=== PATIENT | female | born 1950 | race Caucasian/White ===

== ENCOUNTER → 2017-05-29 | Outpatient (REF) | payer MEDICARE ==
[2017-05-29 14:13] LABS: BASO % 0.7 % (0.0-1.0); EOS % 0.4 % (0.0-3.0); IMMATURE GRANULOCYTE % 0.2 % (0-0); LYMPH # 1.7 10^3/uL (1.5-4.5); LYMPH % 29.3 % (24.0-44.0); MEAN CORPUSCULAR HGB CONC 34.3 g/dl (32.0-36.5); MEAN CORPUSCULAR VOLUME 90.2 fl (80.0-96.0); MONO # 0.3 10^3/uL (0.0-0.8); MONO % 4.7 % (0.0-5.0); NEUTROPHILS # 3.7 10^3/uL (1.8-7.7); NEUTROPHILS % 64.7 % (36.0-66.0); PLATELET COUNT, AUTOMATED 222 10^3/uL (150-450); RED CELL DISTRIBUTION WIDTH 11.8 % (11.5-14.5); WHITE BLOOD COUNT 5.7 10^3/uL (4.0-10.0)
[2017-05-29 14:30] LABS: INR 0.98
[2017-05-29 15:12] LABS: ALBUMIN 4.2 GM/DL (3.2-5.2); ALBUMIN/GLOBULIN RATIO 1.27 (1.00-1.93); ALKALINE PHOSPHATASE 79 U/L (45-117); ALT/SGPT 33 U/L (12-78); AST/SGOT 22 U/L (15-37); BILIRUBIN,DIRECT 0.1 MG/DL (0.0-0.2); BILIRUBIN,TOTAL 0.5 MG/DL (0.2-1.0); CREATININE FOR GFR 0.61 MG/DL (0.55-1.02); GLOMERULAR FILTRATION RATE > 60.0 (>45); TOTAL PROTEIN 7.5 GM/DL (6.4-8.2)
[2017-05-31 14:20] LABS: VITAMIN D 1,25 DIHYDROXY 69.6 pg/mL (19.9-79.3)
[2017-06-02 15:11] LABS: BLASTOMYCES ANTIBODY LEVEL Negative (Neg:<1:1); CRYPTOCOCCUS ANTIGEN SER Negative (Negative); HISTOPLASMOSIS ANTIBODY Negative (Neg:<1:1)
[2017-06-06 07:16] LABS: COCCIDIOMYCOSIS ANTIBODY SEE SEPARATE REPORT (NEGATIVE)
== END ==
LOC: M LAB REF 13:16
PROVIDERS: ATTEND Internal Medicine Pulmonary Disease
DX: R91.8 Other nonspecific abnormal finding of lung field (principal); Z79.899 Other long term (current) drug therapy

== ENCOUNTER → 2017-06-05 | Outpatient (CLI) | payer MEDICARE ==
[~2017-06-05] MED LIST: LIDOCAINE 1% MDV 20ML VIAL As Ordered ONE
--- NOTE | 2017-06-05 13:20 | REP ---
CT GUIDED RIGHT LUNG NODULE BIOPSY: The procedure was performed by KRISTY Crouch, under the direct supervision of Dr. Sheldon. The procedure along with its risks, benefits and complications were discussed with the patient prior to the examination. Informed consent was obtained both verbally and written. The patient was identified in the CT suite and placed on her left hand side. CT guidance was used to find an appropriate site for needle entry. This area was marked, prepped and draped in the usual sterile fashion. A procedural time out was performed to ensure that the correct patient, site and procedure were being performed. Local infiltrative anesthesia was achieved using 1% Xylocaine. A 20-gauge Temno biopsy device was advanced into the lung to the area of interest using CT guidance. Three core biopsy specimens were obtained. These were placed in formalin and sent to the lab for further evaluation. Results pending. The needle was then removed, hemostasis was achieved and a soft dressing was applied to the entry site. Post procedural imaging revealed no immediate complications. The patient tolerated the procedure well. The patient had a minimal amount of hemoptysis during the procedure. IMPRESSION: Uncomplicated CT guided right lung nodule biopsy. Reviewed by KRISTY Stubbs 06/05/2017 01:24 PEdited and Signed by Immanuel Sheldon MD 06/06/2017 07:45 P
--- NOTE | 2017-06-05 13:30 | REP ---
POSTBIOPSY CHEST: Postbiopsy radiograph of the chest demonstrates no pneumothorax status post right lung biopsy. Right lung mass is again noted. Signed by Immanuel Sheldon MD 06/06/2017 04:28 P
== END ==
LOC: M RADPRO 09:06
PROVIDERS: ATTEND Internal Medicine Pulmonary Disease
DX: R91.8 Other nonspecific abnormal finding of lung field (principal); Z95.1 Presence of aortocoronary bypass graft; Z95.2 Presence of prosthetic heart valve; Z87.891 Personal history of nicotine dependence; Z85.828 Personal history of other malignant neoplasm of skin; Z79.82 Long term (current) use of aspirin; Z79.899 Other long term (current) drug therapy

== ENCOUNTER → 2017-09-17 | Outpatient (REF) | payer MEDICARE ==
[2017-09-17 13:56] LABS: PLATELET COUNT, AUTOMATED 261 10^3/uL (150-450)
[2017-09-17 14:14] LABS: INR 0.92; PROTHROMBIN TIME 12.4 SECONDS (12.4-14.5)
[2017-09-17 14:15] LABS: PARTIAL THROMBOPLASTIN TIME 28.2 SECONDS (26.8-37.9)
== END ==
LOC: M LAB REF 12:55
DX: R91.8 Other nonspecific abnormal finding of lung field (principal); Z79.01 Long term (current) use of anticoagulants
CPT/HCPCS: 85049

== ENCOUNTER 2017-09-26 10:50 | Day surgery (SDC) | payer MEDICARE ==
[2017-09-26] MEDS: LR 1,000 ML IV ×2 (11:58)
[2017-09-26] MEDS ORDERED: MIDAZOLAM INJ 2 MG/2 ML VIAL (J2250) As Ordered ×2 (12:21)
[2017-09-26] MEDS ORDERED: ROCURONIUM BROMIDE 50 MG/5 ML VIAL As Ordered ×2 (12:21)
[2017-09-26] MEDS ORDERED: fentaNYL 100 MCG/2 ML INJECTION (J3010) As Ordered ×2 (12:21)
[2017-09-26] MEDS ORDERED: ONDANSETRON 4MG/2ML VIAL (J2405) As Ordered ×2 (12:21)
[2017-09-26] MEDS ORDERED: SUCCINYLCHOLINE 100 MG/5 ML SYRINGE (J0330) As Ordered ×2 (12:21)
[2017-09-26] MEDS ORDERED: LIDOCAINE 2% INJ 100 MG/5 ML SDV (FOR ANES.) As Ordered ×2 (12:21)
[2017-09-26] MEDS ORDERED: METOCLOPRAMIDE INJ 10MG/2ML VIAL (J2765) As Ordered ×2 (12:21)
[2017-09-26] MEDS ORDERED: PROPOFOL 200 MG/20 ML VIAL As Ordered ×2 (12:21)
[2017-09-26] MEDS: CETACAINE SPRAY 5GM As Ordered ×2 (13:35)
[2017-09-26] MEDS: THROMBIN SOLN 5,000 UNITS VIAL As Ordered ×4 (14:14→14:37)
[2017-09-26] MEDS: EPINEPHrine 1MG/10ML SYRINGE 1.5IN As Ordered ×2 (14:14)
[2017-09-26] MEDS: LIDOCAINE 1% SDV INJ 30 ML VIAL As Ordered ×2 (14:37)
[2017-09-26] MEDS: LIDOCAINE VISCOUS 2% SOLN 15ML UDC As Ordered ×4 (14:37→15:13)
[2017-09-26] MEDS ORDERED: PHENYLephrine HCL 500 MCG/5 ML (100MCG/ML) SYRINGE (J2370) As Ordered ×2 (15:25)
[2017-09-26] MEDS ORDERED: LR 1,000 ML IV ×2 (15:30)
[2017-09-26] MEDS ORDERED: ONDANSETRON 4MG/2ML VIAL (J2405) IV ×2 (15:30)
[2017-09-26] MEDS ORDERED: PERCOCET 5MG/325MG TAB PO ×2 (15:30)
[2017-09-26] MEDS ORDERED: MEPERIDINE INJ 25 MG/ML VIAL (J2175) IV ×2 (15:30)
[2017-09-26] MEDS ORDERED: fentaNYL 100 MCG/2 ML INJECTION (J3010) IV ×2 (15:30)
[2017-09-26] MEDS ORDERED: METOCLOPRAMIDE INJ 10MG/2ML VIAL (J2765) IV ×2 (15:30)
[2017-09-26 16:38] LABS: APPEARANCE TURBID (CLEAR); COLOR RED (COLORLESS); DILUTION FACTOR 1; SOURCE RIGHT UPPER LOBE
[2017-09-26 16:39] LABS: BAL DIFF IF INDICATED? YES (NO); WBC BAL COUNTED 68
[2017-09-26 16:40] LABS: BAL WBC 75 CELLS/uL (0-10)
[2017-09-26 19:05] LABS: MONOCYTES/MACROPHAGES, BAL 1 %
[2017-09-26 19:06] LABS: CC BAL DIFF EXAM CYTOCENTRIFUGE
== END 2017-09-26 16:20 | disposition home or self-care (01) ==
LOC: M SDC 10:50
DX: R91.8 Other nonspecific abnormal finding of lung field (principal); J42 Unspecified chronic bronchitis; I25.10 Atherosclerotic heart disease of native coronary artery without angina pectoris; Z79.82 Long term (current) use of aspirin; Z79.899 Other long term (current) drug therapy; I10 Essential (primary) hypertension; E78.5 Hyperlipidemia, unspecified; K21.9 Gastro-esophageal reflux disease without esophagitis; Z86.73 Personal history of transient ischemic attack (TIA), and cerebral infarction without residual deficits; J45.909 Unspecified asthma, uncomplicated; Z87.891 Personal history of nicotine dependence; Z98.61 Coronary angioplasty status
CPT/HCPCS: 31623

== ENCOUNTER → 2017-10-09 | Outpatient (CLI) | payer MEDICARE | LOC: M PLARAD 10:07 | DX: C34.11 Malignant neoplasm of upper lobe, right bronchus or lung (principal) | CPT/HCPCS: 78815 ==

== ENCOUNTER → 2017-10-16 | Outpatient (CLI) | payer MEDICARE ==
[~2017-10-16] MED LIST changes: +GASTROGRAFIN SOLUTION 30ML (Q9963) As Ordered; +ISOVUE-370 76% 100ML VIAL (Q9967) As Ordered; -LIDOCAINE 1% MDV 20ML VIAL As Ordered ONE
== END ==
LOC: M RAD 13:03
DX: C34.90 Malignant neoplasm of unspecified part of unspecified bronchus or lung (principal); R91.8 Other nonspecific abnormal finding of lung field
CPT/HCPCS: Q9963

== ENCOUNTER → 2017-10-19 | Outpatient (CLI) | payer MEDICARE | LOC: M PLARAD 09:20 | DX: C34.90 Malignant neoplasm of unspecified part of unspecified bronchus or lung (principal); Z86.73 Personal history of transient ischemic attack (TIA), and cerebral infarction without residual deficits | CPT/HCPCS: 70553 ==

== ENCOUNTER → 2017-10-25 | Outpatient (CLI) | payer MEDICARE ==
[~2017-10-25] MED LIST changes: -GASTROGRAFIN SOLUTION 30ML (Q9963) As Ordered; -ISOVUE-370 76% 100ML VIAL (Q9967) As Ordered; +LIDOCAINE 1% MDV 20ML VIAL As Ordered
== END ==
LOC: M RADPRO 10:28
DX: C34.12 Malignant neoplasm of upper lobe, left bronchus or lung (principal); Z79.82 Long term (current) use of aspirin; Z79.899 Other long term (current) drug therapy
CPT/HCPCS: 32405

== ENCOUNTER → 2018-01-15 | Outpatient (REF) | payer MEDICARE ==
[2018-01-15 14:19] LABS: INR 0.96; PARTIAL THROMBOPLASTIN TIME 27.4 SECONDS (26.8-37.9); PROTHROMBIN TIME 12.9 SECONDS (12.4-14.5)
== END ==
LOC: M ONCM 09:11
DX: C34.11 Malignant neoplasm of upper lobe, right bronchus or lung (principal); C34.12 Malignant neoplasm of upper lobe, left bronchus or lung; Z79.01 Long term (current) use of anticoagulants
CPT/HCPCS: 85610

== ENCOUNTER 2018-01-28 10:36 | Day surgery (SDC) | payer MEDICARE ==
[2018-01-28] MEDS ORDERED: LR 1,000 ML IV ×2 (11:00→15:00)
[2018-01-28] MEDS: LIDOCAINE 1% SDV INJ 30 ML VIAL As Ordered (13:56)
[2018-01-28] MEDS: MUPIROCIN 2% OINT 22 GM TUBE TOP (13:57)
[2018-01-28] MEDS ORDERED: LIDOCAINE 2% INJ 100 MG/5 ML SDV (FOR ANES.) As Ordered (14:01)
[2018-01-28] MEDS ORDERED: MIDAZOLAM INJ 2 MG/2 ML VIAL (J2250) As Ordered (14:01)
[2018-01-28] MEDS ORDERED: METOCLOPRAMIDE INJ 10MG/2ML VIAL (J2765) As Ordered (14:01)
[2018-01-28] MEDS ORDERED: ONDANSETRON 4MG/2ML VIAL (J2405) As Ordered (14:01)
[2018-01-28] MEDS ORDERED: fentaNYL 100 MCG/2 ML INJECTION (J3010) As Ordered (14:01)
[2018-01-28] MEDS ORDERED: PROPOFOL 200 MG/20 ML VIAL As Ordered (14:01)
[2018-01-28] MEDS ORDERED: PHENYLephrine HCL 500 MCG/5 ML (100MCG/ML) SYRINGE (J2370) As Ordered (14:16)
[2018-01-28] MEDS: HEPARIN SOD (PORCINE) 5000 UNITS/ML VIAL As Ordered (14:24)
[2018-01-28] MEDS: BUPIVACAINE LIPOSOME/PF 1.3% 20 ML VIAL (13.3MG/ML)(EXPAREL) As Ordered (14:35)
[2018-01-28] MEDS ORDERED: PERCOCET 5MG/325MG TAB PO (15:00)
[2018-01-28] MEDS ORDERED: ONDANSETRON 4MG/2ML VIAL (J2405) IV (15:00)
[2018-01-28] MEDS: PERCOCET 5MG/325MG TAB PO (15:20)
== END 2018-01-28 16:08 | disposition home or self-care (01) ==
LOC: M SDC 10:36
DX: C34.31 Malignant neoplasm of lower lobe, right bronchus or lung (principal); C34.32 Malignant neoplasm of lower lobe, left bronchus or lung; Z45.2 Encounter for adjustment and management of vascular access device; I25.10 Atherosclerotic heart disease of native coronary artery without angina pectoris; I35.9 Nonrheumatic aortic valve disorder, unspecified; I10 Essential (primary) hypertension; K21.9 Gastro-esophageal reflux disease without esophagitis; E78.2 Mixed hyperlipidemia
CPT/HCPCS: 36561

== ENCOUNTER → 2018-02-04 | Outpatient (CLI) | payer MEDICARE | LOC: M SMT 08:56 | DX: R91.8 Other nonspecific abnormal finding of lung field (principal) | CPT/HCPCS: 71046 ==